=== PATIENT | female | born 2000 | race African-American/Black ===

== ENCOUNTER 2025-05-25 00:28 | Emergency (ER) | payer MEDICAID ==
[~2025-05-25] VITALS: Ht 163.8 cm; Wt 50.2 kg
[2025-05-25 00:35] VITALS: O2SAT 100
[2025-05-25] MEDS: LIDOCAINE 5% PATCH TOP SCH (02:49)
[2025-05-25] MEDS: ACETAMINOPHEN 500MG TABLET PO ONE (02:49)
[2025-05-25] MEDS ORDERED: NAPR-1176 MT (03:52)
[2025-05-25] MEDS ORDERED: LIDO-53 TP (03:52)
[2025-05-25 04:09] VITALS: BP 116/65; PULSE 70; RESP 18; TEMP 36.9; O2SAT 99
== END 2025-05-25 04:17 | disposition home or self-care (01) ==
LOC: ER 00:28
DX: R51.9 Headache, unspecified (principal); M54.2 Cervicalgia; M25.512 Pain in left shoulder
CPT/HCPCS: 73030; 73562; 99284